=== PATIENT | male | born 1935 | race Caucasian/White ===

== ENCOUNTER 2017-02-14 04:04 | Emergency (ER) | payer MEDICARE ==
[2017-02-14] MEDS ORDERED: 0.9 % SODIUM CHLORIDE 500 ML IV ONE (04:32)
--- NOTE | 2017-02-14 04:37 | ED Physician Documentation ---
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 Pt had bit his tongue and also was incontinent of urine. Pt does not have a seizure history. Pt's speech is slightly slurred on presentation. says that she noticed this and that it has been getting progressively worse for the past few weeks, though it is subtle on presentation. On examination pt correctly gives date and month, but gives year as 1978. Pt has no complaints of weakness or tingling. states that pt has fallen a few times in the past weeks. Pt denies head injury. Pt's does not believe he has injured his head.) - ROS CONST: other (Pt cannot give reliable ROS.) EYES/ENT: none CVS/RESP: none GI/: none MS/SKIN/LYMPH: none NEURO/PSYCH: difficulty with speech - PAST HX Past History: other (DMII, HTN, COPD) Surgeries/Procedures: other (catarac removal; R index finger distal amputation age 5.) Allergies/Adverse Reactions: Allergies Allergy/AdvReac Type Severity Reaction Status Date / Time No Known Drug Allergies Allergy Verified 02/14/17 04:30 Home Medications: Ambulatory Orders Medication Instructions Recorded Aspirin 81 mg PO DAILY u2 04/23/13 - SOCIAL HX Smoking History: quit greater than 1 year Alcohol Use: rarely - FAMILY HX Family History: Yes (Father: CVA) - VITAL SIGNS Vital Signs: Vital Signs Temp Pulse Resp BP Pulse Ox 97.6 F 72 16 183/93 96 02/14/17 04:04 02/14/17 04:04 02/14/17 04:04 02/14/17 04:04 02/14/17 04:04 - REVIEWED ASSESSMENTS Nursing Assessment Reviewed: Yes Vitals Reviewed: Yes Progress - Progress Progress: CT head w/o contrast: Brain atrophy and chronic small vessel ischemic gliosis in cerebral white matter without acute abnormality. Pt appeared to have a seizure in course of ER visit. Staring off to his L side and not answering or responding to questions. This episode was brief lasting about 1 minute, then pt appeared disoriented or post-ictal. Pt given 2 mg ativan IV. Transfer to [facility], to Dr. Walter (of [facility]). - EKG/XRAY/CT EKG: NSR (HR=68; normal CA interval; normal axis.) ED Results Lab/Radiology - Orders Orders: ED Orders Category Date Time Status Place Saline Lock/IV Now Care 02/14/17 04:[address] BRAIN W/O CONTRAST Stat Exams 02/14/17 Ordered CBC/PLATELET/DIFF Routine Lab 02/14/17 Ordered CMP Routine Lab 02/14/17 Ordered PT-INR Routine Lab 02/14/17 Ordered PTT Routine Lab 02/14/17 Ordered NORMAL SALINE @ 500 MLS/HR(500ml BOLUS) Med 02/14/17 04:32 Ordered 0.9 % Sodium Chloride [Normal Saline] 500 ml IV NOW EKG WITH COMPARISON Stat Ther 02/14/17 Ordered General Adult Physical Exam - PHYSICAL EXAM GENERAL APPEARANCE: mild distress EENT: eye inspection normal, ENT inspection normal, other (abrasion L side of violeta tip (pt bit tongue)) NECK: normal inspection, supple RESPIRATORY: no resp distress, chest non-tender, breath sounds normal (distant breath sounds) CVS: reg rate & rhythm, heart sounds normal ABDOMEN: soft, no organomegaly, normal bowel sounds BACK: normal inspection, no CVA tenderness SKIN: warm/dry, normal color EXTREMITIES: non-tender, no evidence of injury NEURO: motor nml, sensation nml, disoriented (Gives correct day and month, but gives year as 1978; Asked to spell "world" says "[id number]") Discharge Clincal Impression: New onset seizure Change in mental state Qualifiers: Altered mental status type: disorientation Qualified Code(s): R41.0 - Disorientation, unspecified Referrals: Branden Walter MD [Primary Care Provider] - Home Medications: Ambulatory Orders Aspirin 81 mg PO DAILY u2 04/23/13 Condition: Stable Disposition: 02 XFER SHT-TRM HOSP Decision to Admit: NO Decision Time: 06:20
[2017-02-14] MEDS ORDERED: ASPIRIN 325 MG TABLET PO ONE (05:15)
[2017-02-14 05:17] LABS: BASOPHILS % 0.3 (0.0-1.5); EOSINOPHILS % 1.6 % (0.0-6.8); MEAN CORPUSCULAR HEMOGLOBIN 30.9 pg (28.0-34.0); MONOCYTES # 0.5 # k/uL (0.0-0.9); MONOCYTES % 5.4 % (0.0-11.0); NEUTROPHILS # 7.2 # k/uL (1.4-7.7)
[2017-02-14 05:36] LABS: eGFR (African) > 60; eGFR (Non-African) > 60
[2017-02-14] MEDS ORDERED: LORazepam 2 MG/ML VIAL ONE (05:49)
[2017-02-14] MEDS ORDERED: LORazepam 2 MG/ML VIAL IVP ONE (05:56)
[2017-02-14] MEDS ORDERED: 0.9 % SODIUM CHLORIDE 1,000 ML IV SCH (06:00)
--- NOTE | 2017-02-14 06:36 | Diagnostic Imaging Report ---
Report Submission Date: Feb 14, 2017 4:57:45 AM CDT Patient ~ Study Name: ERNST VALDOVINOS ~ Date: Feb 14, 2017 4:42:25 AM CDT ~ Modality Type: CT\SR Gender: M ~ Description: CT BRAIN W/O CONTRAST : 37 ~ Institution: [facility] [place] Physician: VICTOR M AUGUSTIN ~ ~ ~ ~ Computed tomography of the head without contrast History: Altered behavior and incontinence Findings: Transverse brain sections are obtained without contrast revealing mild global brain atrophy and moderate chronic small vessel ischemic gliosis in cerebral white matter. Khalil white differentiation is intact. There is no intracranial hemorrhage, mass effect, or fluid collection. Small maxillary sinus mucous retention cysts are present bilaterally. The skull is intact. Impression: Brain atrophy and chronic small vessel ischemic gliosis in cerebral white matter without acute abnormality. ~ Electronically signed on Feb 14, 2017 4:57:45 AM CDT by: Lee ZUNIGA
[2017-02-14 07:23] VITALS: BP 155/82
== END 2017-02-14 07:20 | disposition short-term general hospital (02) ==
LOC: ED 04:04
DX: R41.0 Disorientation, unspecified (principal); R56.9 Unspecified convulsions
CPT/HCPCS: 70450; 80053; 85025; 85610; 85730; 99283; 99284; J2060; J7060; A9270; J7030

== ENCOUNTER 2017-04-19 07:35 | Outpatient (CLI) | payer MEDICARE ==
[2017-04-19 08:32] LABS: eGFR (African) > 60; eGFR (Non-African) > 60
== END 2017-04-19 07:36 ==
LOC: LAB 07:35
PROVIDERS: ATTEND Family Medicine
DX: E11.9 Type 2 diabetes mellitus without complications (principal)
CPT/HCPCS: 36415; 80053; 80061; 82043; 83036

== ENCOUNTER 2017-07-25 12:54 | Outpatient (CLI) | payer MEDICARE | END 2017-07-25 12:55 | LOC: RAD 12:54 | PROVIDERS: ATTEND Family Medicine | DX: R13.11 Dysphagia, oral phase (principal) | CPT/HCPCS: 74230 ==

== ENCOUNTER 2017-09-03 07:36 | Observation (INO) | payer MEDICARE ==
--- NOTE | 2017-09-03 09:16 | History and Physical Report ---
History of Present Illnes - History of Present Illness Reason for Visit: bradycardia History of Present Illness: 82 yo white male who presented to the outpatient department for an endoscopy today. On preprocedure evaluation was noted to be markedly bradycardia with resting heart rate of 36. EKG was done and showed sinus bradycardia of 38. Patient denies any chest pain or pressure. Denies any orthostatic symptoms but his states that he has had some dizziness and staggering when he gets up. He has not fallen. He has had no previous history of bradycardia. Patient has been taking metoprolol 50mg 1/2 tab twice a day for hypertension. Patient denies any recent medication changes. Patient was admitted to monitor heart rate and blood pressure. Will discontinue metoprolol. 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) - Past Family History Mother Family History: (92yo advanced age) Father Family History: CVA, (75yo) Brother 1 Family History: (52yo, unknown cause) Brother 2 Family History: (83yo, unknown cause) - Past Social History Smoke: No Alcohol: None Drugs: None Lives: With Family () Domestic Violence: Negative - Health Maintenance Health Maintenance: Cholesterol, Influenza Vaccine (09-12-17), Pneumococcal Vaccine (pneumococcal 2003, Prevnar 09-12-16) Influenza Vaccine: Current for this Influenza Season Pneumonia Vaccine: Yes Resuscitation Status: Resusciation Status Resuscitation Status No Intubation/Mech Vent - Unable to Obtain History Unable to Obtain: No Review of Systems - Review of Systems Constitutional: negative: Fever, Chills Eyes: negative: pain, vision change ENT: Nose Congestion. negative: Ear Pain, Ear Discharge, Mouth Pain, Mouth Swelling Respiratory: negative: Cough, Dry, Shortness of Breath, Hemoptysis, SOB with Excertion, Pleuritic Pain Cardiovascular: negative: Chest Pain, Palpitations, Orthopnea, Edema, Light Headedness Gastrointestinal: negative: Nausea, Vomiting, Abdominal Pain, Diarrhea, Constipation, Melena, Hematochezia Genitourinary: Retention. negative: Dysuria, Frequency Musculoskeletal: Neck Pain. negative: Shoulder Pain, Back Pain Skin: negative: Rash Neurological: negative: Weakness, Numbness, Incoordination - Medications/Allergies Allergies/Adverse Reactions: Allergies Allergy/AdvReac Type Severity Reaction Status Date / Time No Known Drug Allergies Allergy Verified 02/14/17 04:30 Home Medications: Home Medications Donepezil HCl [Aricept] 5 mg PO HS 09/03/17 Current Inpatient Medications: Current Inpatient Medications Aspirin (Aspirin) 81 mg PO DAILY [facility]ON Donepezil HCl (Aricept) 5 mg PO HS [facility] Levetiracetam (Keppra) 500 mg PO BID [facility] Losartan Potassium (Cozaar) 50 mg PO DAILY [facility] Metformin HCl (Glucophage) 1,000 mg PO 0700 [facility] Sodium Chloride (Normal Saline Flush) 3 ml IV BID [facility] Exam - Exam General: Alert, Oriented to Person, Oriented to Place, Oriented to Time, Cooperative, No acute distress HEENT: Atraumatic, PERRLA, EOMI, Dentition Normal Neck: Stridor, Rigidity, Normal Range of Motion. No: Lymphadenopathy Carotids: WNL Thyroid: WNL Lungs: Clear to auscultation, Normal air movement, Speaks full Sentences. No: Wheezes, Rales, Rhonchi Cardiovascular: Normal S1, Normal S2, No murmurs, Bradycardia (Normal sinus bradycardia on monitor), Other Abdomen: Normal bowel sounds, Soft, No tenderness, No hepatospenomegaly, No masses Integumentary: Normal, [place], Warm, Dry Extremities: No clubbing, No cyanosis. No: No edema (trace) Neurological: Normal gait, Normal speech, Strength Equal Bilat, Normal tone, Sensation intact Psych/Mental Status: Mental status NL, Mood NL, Appropriate Affect, Intact Judgment Assessment/Plan - Assessment/Plan (1) Bradycardia Status: Acute Assessment: No previous problems, will hold metoprolol and monitor heart rate. Patient has been placed on monitor. Will get troponin (2) Diabetes mellitus type 2 Status: Chronic Assessment: check BS, continue with home meds (3) Hypertension Status: Chronic Qualifiers: Hypertension type: essential hypertension Qualified Code(s): I10 - Essential (primary) hypertension Assessment: Will monitor off of the metoprolol (4) New onset seizure Status: Deleted Assessment: continue wiht home med of Keppra, will get blood level VTE Assessment - RISK FACTOR SCORE VTE RISK FACTOR SCORES: AGE OVER 60 YEARS, ANTICIPATED BED CONFINEMENT OR IMMOBILIZATION > 24 HOURS - RISK VTE MODERATE RISK: SCORE OF 2 (RISK PROXIMAL DVT 2-4%) PROPHYAXIS NEEDED
[2017-09-03 09:42] LABS: BASOPHILS % 0.5 (0.0-1.5); EOSINOPHILS % 4.4 % (0.0-6.8); MEAN CORPUSCULAR HEMOGLOBIN 29.4 pg (28.0-34.0); MEAN CORPUSCULAR VOLUME 89.7 fl (80.0-100.0); MONOCYTES % 7.4 % (0.0-11.0); NEUTROPHILS # 4.7 # k/uL (1.4-7.7)
[2017-09-03 09:57] LABS: eGFR (African) > 60; eGFR (Non-African) > 60
[2017-09-03] MEDS: ASPIRIN 81 MG CHEW TAB PO SCH (11:54)
[2017-09-03 13:25] VITALS: BMI 25.9
[2017-09-03] MEDS ORDERED: DONEPEZIL HCL 5 MG TABLET PO ONE (14:04)
[2017-09-03] MEDS: levETIRAcetam 500 MG TABLET PO SCH (20:24)
[2017-09-03] MEDS: SALINE FLUSH 10 ML DISP.SYRIN IV SCH ×2 (20:25→22:51)
[2017-09-03] MEDS ORDERED: DONEPEZIL HCL 5 MG TABLET PO SCH (21:00)
[2017-09-04] MEDS: levETIRAcetam 500 MG TABLET PO SCH (08:23)
[2017-09-04] MEDS: ASPIRIN 81 MG CHEW TAB PO SCH (08:25)
[2017-09-04] MEDS: SALINE FLUSH 10 ML DISP.SYRIN IV SCH (08:26)
[2017-09-04] MEDS ORDERED: LOSARTAN POTASSIUM 50 MG TABLET PO SCH (09:00)
--- NOTE | 2017-09-04 14:09 | Inpatient Progress Note ---
Subjective - Required Recertification Statement I anticipate X number of days because-include discharge plan: 1 - Review of Systems Events since last encounter: Patient continues to be doing well and is asymptomatic. No dizziness or orthostic symptoms. On telemetry patient has been running in the upper 30's to mid 40's most of the night. Has been in the 50-60 since awake. Has been able to maintain BP and mentation well. No chest pain noted. Patient is complaining of some clear nasal drainage General: Denies: Chills, Night Sweats Cardiovascular: Denies: Chest Pain, Palpitations, Orthopnea, Edema Gastrointestinal: Denies: Nausea, Vomiting, Abdominal Pain, Melena, Hematochezia Genitourinary: Denies: Dysuria, Frequency Musculoskeletal: Denies: Neck Pain Neurological: Denies: Weakness, Numbness Objective - Exam Vitals and I&O: Vital Signs Temp 97 F L 09/04/17 14:00 Pulse 44 L 09/04/17 05:42 Resp 57 H 09/04/17 14:00 BP 154/74 09/04/17 14:00 Pulse Ox 95 09/04/17 14:00 Intake & Output 09/03/17 09/04/17 09/04/17 23:59 11:59 23:59 Intake Total 600 240 880 Balance 600 240 880 Intake: Oral 600 240 880 Other: Voiding Method Toilet # Voids 1 1 4 General: Alert, Oriented to Person, Oriented to Place, Oriented to Time, Cooperative, No acute distress HEENT: Atraumatic Neck: Supple, No JVD Lungs: Clear to auscultation (EKG show NSR), Normal air movement, Speaks full Sentences. No: Wheezes, Rales, Rhonchi Cardiovascular: Normal S1, Normal S2, No murmurs, Bradycardia Abdomen: Normal bowel sounds Extremities: No clubbing, No cyanosis Skin: Normal, [place], Warm Psych/Mental Status: Mental status NL - Results Results: Laboratory Results WBC 7.00 K/ul (4.00-12.00) 09/03/17 09:35 RBC 4.70 M/ul (3.90-5.20) 09/03/17 09:35 Hgb 13.8 g/dL (12.0-18.0) 09/03/17 09:35 Hct 42.1 % (37.0-53.0) 09/03/17 09:35 MCV 89.7 fl (80.0-100.0) 09/03/17 09:35 MCH 29.4 pg (28.0-34.0) 09/03/17 09:35 MCHC 32.8 g/dL (30.0-36.0) 09/03/17 09:35 RDW 12.9 % (11.3-14.3) 09/03/17 09:35 Plt Count 204 K/mm3 (130-400) 09/03/17 09:35 Neut % (Auto) 67.4 % (39.0-79.0) 09/03/17 09:35 Lymph % (Auto) 17.7 % (16.0-50.0) 09/03/17 09:35 Frio % (Auto) 7.4 % (0.0-11.0) 09/03/17 09:35 Eos % (Auto) 4.4 % (0.0-6.8) 09/03/17 09:35 Baso % (Auto) 0.5 (0.0-1.5) 09/03/17 09:35 Neut # (Auto) 4.7 # k/uL (1.4-7.7) 09/03/17 09:35 Lymph # (Auto) 1.2 # k/uL (0.6-4.0) 09/03/17 09:35 Frio # (Auto) 0.5 # k/uL (0.0-0.9) 09/03/17 09:35 Eos # (Auto) 0.3 # k/uL (0.0-0.6) 09/03/17 09:35 Baso # (Auto) 0.0 # k/uL (0.0-0.5) 09/03/17 09:35 Reactive Lymphs % 2.6 % (0.0-5.0) 09/03/17 09:35 Reactive Lymphs # 0.2 # k/uL (0.0-0.8) 09/03/17 09:35 Sodium 138 mmol/L (137-145) 09/03/17 09:35 Potassium 4.5 mmol/L (3.5-5.1) 09/03/17 09:35 Chloride 103 mmol/L (98-107) 09/03/17 09:35 Carbon Dioxide 29 mmol/L (22-30) 09/03/17 09:35 BUN 13 mg/dL (9-20) 09/03/17 09:35 Creatinine 0.80 mg/dL (0.66-1.25) 09/03/17 09:35 Est GFR ( Amer) > 60 (60-) 09/03/17 09:35 Est GFR (Non-Af Amer) > 60 (60-) 09/03/17 09:35 Glucose 113 mg/dL (74-106) H 09/03/17 09:35 Calcium 8.6 mg/dL (8.4-10.2) 09/03/17 09:35 Total Bilirubin 0.8 mg/dL (0.2-1.3) 09/03/17 09:35 AST 21 U/L (15-46) 09/03/17 09:35 ALT 24 U/L (13-69) 09/03/17 09:35 Alkaline Phosphatase 46 U/L (38-126) 09/03/17 09:35 Troponin I < 0.03 ng/mL (0.03-0.06) L 09/03/17 09:35 Total Protein 6.6 g/dL (6.3-8.2) 09/03/17 09:35 Albumin 3.5 g/dL (3.5-5.0) 09/03/17 09:35 Levetiracetam 18.4 ug/mL (6.0-46.0) 09/03/17 09:35 Assessment/Plan - Assessment/Plan (1) Bradycardia Status: Acute Current Visit: Yes Assessment: Patient seems to be doing some better since awake. Has been off metoprolol for 24 hours at this time. Will get cardiac consult. (2) Diabetes mellitus type 2 Status: Chronic Current Visit: No Assessment: stable (3) Hypertension Status: Chronic Current Visit: No Qualifiers: Hypertension type: essential hypertension Qualified Code(s): I10 - Essential (primary) hypertension Assessment: stable off metoprolol (4) Seizure Status: Chronic Current Visit: Yes Plan: continue with present anticonvulsant
[2017-09-04 17:13] VITALS: BP 150/70
--- NOTE | 2017-09-08 11:55 | Discharge Summary ---
Discharge Summary - Discharge Sumary History of Present Illness: 82 yo white male who presented to the outpatient department for an endoscopy today. On preprocedure evaluation was noted to be markedly bradycardia with resting heart rate of 36. EKG was done and showed sinus bradycardia of 38. Patient denies any chest pain or pressure. Denies any orthostatic symptoms but his states that he has had some dizziness and staggering when he gets up. He has not fallen. He has had no previous history of bradycardia. Patient has been taking metoprolol 50mg 1/2 tab twice a day for hypertension. Patient denies any recent medication changes. Patient was admitted to monitor heart rate and blood pressure. Will discontinue metoprolol. Home Medications: Ambulatory Orders Medication Instructions Recorded Aspirin 81 mg PO DAILY u2 04/23/13 Donepezil HCl [Aricept] 5 mg PO HS 09/03/17 Allergies/Adverse Reactions: Allergies Allergy/AdvReac Type Severity Reaction Status Date / Time No Known Drug Allergies Allergy Verified 02/14/17 04:30 Discharge Summary: Patient was admitted to the hospital because of his extreme bradycardia. Patient was placed on a captain of guards and appeared to remain in a sinus rhythm. However patient did yung down into the 30s at times. Patient was able to maintain his blood pressure at all times. Patient metoprolol with discontinued. Approximately 24 hours after his metoprolol with decreased patient heart rate increased up into the 50s and 60s. Patient was seen by real property appraiser for evaluation and no further intervention was recommended at this time. Patient will be placed on a Holter monitor once one becomes available for further evaluation. Patient diabetes mellitus remains stable. Patient did not have any hyper or hypoglycemic episodes. Patient seizure disorder remains stable patient did not have any seizure activity during his hospitalization. Hypertension remains stable on his other home medications. At the time of dismissal patient was stable. - Final Diagnosis (1) Bradycardia Problems: Improved (2) Diabetes mellitus type 2 Problems: stable on home meds (3) Hypertension Problems: stable on home meds but off metoprolol (4) New onset seizure Problems: stable
== END 2017-09-04 16:20 | disposition home or self-care (01) ==
LOC: OPSURG 07:36 → SOUTH 08:52
PROVIDERS: ADMIT Family Medicine; ATTEND Family Medicine
DX: R00.1 Bradycardia, unspecified (principal); E11.9 Type 2 diabetes mellitus without complications
CPT/HCPCS: 36415; 80053; 80177; 84484; 85025; 93005; G0378; S1016

== ENCOUNTER 2017-09-05 09:58 | Outpatient (CLI) | payer MEDICARE ==
[2017-09-04 14:05] VITALS: BP 154/74
== END 2017-09-05 10:00 ==
LOC: CARD 09:58 → RT 10:00
PROVIDERS: ATTEND Family Medicine
DX: R00.1 Bradycardia, unspecified (principal)
CPT/HCPCS: 93225

== ENCOUNTER 2017-10-22 14:42 | Outpatient (CLI) | payer MEDICARE ==
[2017-09-04 14:05] VITALS: BP 154/74
[2017-10-22 15:25] LABS: eGFR (African) > 60; eGFR (Non-African) > 60
== END 2017-10-22 14:44 ==
LOC: LAB 14:42
PROVIDERS: ATTEND Family Medicine
DX: E11.9 Type 2 diabetes mellitus without complications (principal); I10 Essential (primary) hypertension
CPT/HCPCS: 36415; 80053; 80061; 83036

== ENCOUNTER 2017-12-10 08:49 | Outpatient (CLI) | payer MEDICARE ==
[2017-09-04 14:05] VITALS: BP 154/74
--- NOTE | 2017-12-10 14:50 | Diagnostic Imaging Report ---
NAUN BELTRAN [facility] [address] [facility].[address] [address] Report Submission Date: Dec 10, 2017 9:55:19 AM MEMBER SERVICES REPRESENTATIVE Patient Study Name: ERNST VALDOVINOS Date: Dec 10, 2017 9:06:19 AM MEMBER SERVICES REPRESENTATIVE Modality Type: US Gender: M Description: DPLX SCN XTRCRAN ART CMP EDOUARD : 39 Institution: [facility] Physician: NAUN BELTRAN Examination: Carotid artery ultrasound History: Syncope. HTN Comparison exams: None available Findings: Right carotid: Common carotid artery peak systolic velocity 77.3 cm/s; end diastolic velocity 13.6 cm/s. Internal carotid artery peak systolic velocity 73.0 cm/s; end diastolic velocity 22.3 cm/s. External carotid artery velocity to 77.8 cm/s. Vertebral artery velocity 33.9 cm/s Vertebral flow antegrade. Normal waveforms. No occlusive plaquing. Left carotid: Common carotid artery peak systolic velocity 70.6 cm/s; end diastolic velocity 15.7 cm/s. Internal carotid artery peak systolic velocity 102.0 cm/s; end diastolic velocity 35.9 cm/s. External carotid artery velocity to 106.1 cm/s. Vertebral artery velocity 42.0 cm/s Vertebral flow antegrade. Normal waveforms. No occlusive plaquing. Right ICA/CCA Ratio: 0.9 Left ICA/CCA Ratio 1.4 Impression: Carotids ratios not elevated. No restriction to hemodynamic flow. Electronically signed on Dec 10, 2017 9:55:19 AM MEMBER SERVICES REPRESENTATIVE by: William ZUNIGA
== END 2017-12-10 08:50 ==
LOC: RAD 08:49
PROVIDERS: ATTEND Family Medicine
DX: G45.9 Transient cerebral ischemic attack, unspecified (principal)
CPT/HCPCS: 93880

== ENCOUNTER 2018-03-11 18:31 | Emergency (ER) | payer MEDICARE ==
--- NOTE | 2018-03-11 18:52 | ED Physician Documentation ---
Altered Mental Status - HISTORIAN Historian: patient - HPI Stated Complaint: mental status changes Chief Complaint: Altered Mental Status Onset: hours (1) Duration: gradual onset Last known Well Date: 03/11/18 Last Known Well Time: 15:00 Last known Well Code/Unknown Code: Unknown Character of Altered Mental Status: disoriented, confused, agitated, trouble concentrating, decreased responsiveness. denies: unresponsive, seizure activity Context: recent alcohol intake, heavy alcohol intake Cognition is Usually: alert but confused Gait is Usually: walks w/o assistance Associated Symptoms: none Further Comments: yes (He was at the local bar and did have "a few drinks" and he was found by his spouse at home "looking at the toliet" She states that he was moving slow and she was sure he was having a stroke. He did not have any specific loss of control of one side. He was speaking clearly but slow to respond. She states he did this January 30 after being at the same bar. She also is concerned because about one month ago he was at a local cafe and he just got up and paid and left without talking to her. In January he came home and went downstairs after the bar and was found "passed out" on the floor) - ROS EYES/ENT: none CVS/RESP: denies: chest pain, shortness of breath, palpitations GI/: denies: abdominal pain, vomiting, nausea NEURO/PSYCH: denies: headache - PAST HX Past History: confusion, diabetes Type 2 Surgeries/Procedures: none Allergies/Adverse Reactions: Allergies Allergy/AdvReac Type Severity Reaction Status Date / Time No Known Drug Allergies Allergy Verified 03/11/18 18:38 Home Medications: Ambulatory Orders Medication Instructions Recorded Aspirin 81 mg PO DAILY u2 04/23/13 - SOCIAL HX Smoking History: non-smoker Alcohol Use: occasionally Drug Use: none - FAMILY HX Family History: none - VITAL SIGNS Vital Signs: Vital Signs Temp Pulse Resp BP Pulse Ox 98.2 F 63 18 130/71 96 03/11/18 20:46 03/11/18 20:46 03/11/18 20:46 03/11/18 20:46 03/11/18 20:46 - REVIEWED ASSESSMENTS Nursing Assessment Reviewed: Yes Vitals Reviewed: Yes Progress - Progress Progress: 1900: up to side of bed for urination tolerated well with assistance. DG 2014: Discussed results with and pt. She states he was not intoxicated and she is sure he has had a stroke. Discussed the lab and diagnostics and he should follow up with PCP for increasing confusion DG ED Results Lab/Radiology - Lab Results Lab Results: Lab Results 03/11/18 03/11/18 03/11/18 19:41 19:08 19:08 WBC 6.10 K/ul K/ul (4.00-12.00) RBC 4.69 M/ul M/ul (3.90-5.20) Hgb 14.4 g/dL g/dL (12.0-18.0) Hct 41.4 % % (37.0-53.0) MCV 88.3 fl fl (80.0-100.0) MCH 30.7 pg pg (28.0-34.0) MCHC 34.8 g/dL g/dL (30.0-36.0) RDW 12.7 % % (11.3-14.3) Plt Count 260 K/mm3 K/mm3 (130-400) Neut % (Auto) 69.8 % % (39.0-79.0) Lymph % (Auto) 17.2 % % (16.0-50.0) Ray % (Auto) 7.4 % % (0.0-11.0) Eos % (Auto) 3.0 % % (0.0-6.8) Baso % (Auto) 0.6 (0.0-1.5) Neut # (Auto) 4.2 # k/uL # k/uL (1.4-7.7) Lymph # (Auto) 1.0 # k/uL # k/uL (0.6-4.0) Ray # (Auto) 0.4 # k/uL # k/uL (0.0-0.9) Eos # (Auto) 0.2 # k/uL # k/uL (0.0-0.6) Baso # (Auto) 0.0 # k/uL # k/uL (0.0-0.5) Reactive Lymphs % 2.1 % % (0.0-5.0) Reactive Lymphs # 0.1 # k/uL # k/uL (0.0-0.8) PT 10.2 Seconds Seconds (9.4-11.6) INR 0.97 (0.9-1.2) APTT 23.5 Seconds L Seconds (24.5-32.8) Sodium Potassium Chloride Carbon Dioxide BUN Creatinine Estimated Creat Clear Est GFR ( Amer) Est GFR (Non-Af Amer) Glucose Calcium Total Bilirubin AST ALT Alkaline Phosphatase Creatine Kinase CK-MB (CK-2) 2.6 ng/mL ng/mL (0.0-5.6) Troponin I Total Protein Albumin Ethyl Alcohol 03/11/18 03/11/18 19:07 19:07 WBC RBC Hgb Hct MCV MCH MCHC RDW Plt Count Neut % (Auto) Lymph % (Auto) Ray % (Auto) Eos % (Auto) Baso % (Auto) Neut # (Auto) Lymph # (Auto) Ray # (Auto) Eos # (Auto) Baso # (Auto) Reactive Lymphs % Reactive Lymphs # PT INR APTT Sodium 142 mmol/L mmol/L (136-145) Potassium 4.0 mmol/L mmol/L (3.5-5.1) Chloride 104 mmol/L mmol/L (98-107) Carbon Dioxide 23 mmol/L mmol/L (22-30) BUN 11 mg/dL mg/dL (9-20) Creatinine 1.00 mg/dL mg/dL (0.66-1.25) Estimated Creat Clear 90 Est GFR ( Amer) > 60 (60 - ) Est GFR (Non-Af Amer) > 60 (60 - ) Glucose 240 mg/dL H mg/dL (74-106) Calcium 8.5 mg/dL mg/dL (8.4-10.2) Total Bilirubin 0.7 mg/dL mg/dL (0.2-1.3) AST 27 U/L U/L (15-46) ALT 36 U/L U/L (13-69) Alkaline Phosphatase 69 U/L U/L (38-126) Creatine Kinase 104 U/L U/L (55-170) CK-MB (CK-2) Troponin I < 0.03 ng/mL L ng/mL (0.03-0.06) Total Protein 7.1 g/dL g/dL (6.3-8.2) Albumin 4.1 g/dL g/dL (3.5-5.0) Ethyl Alcohol 123.2 mg/dL H mg/dL (0.0-10.0) - Radiology Radiology Impressions: CT brain noncontrast Date of study: March 11, 2018. CLINICAL HISTORY: change in PERICO (Hx) / ITS.REASON change in PERICO TECHNIQUE: 5 mm contiguous axial images of the brain, noncontrast. FINDINGS: Comparison is made with February 14, 2017. Atrophy and chronic periventricular microvascular ischemic changes are again noted. Bilateral basal ganglia calcifications are noted. There is no evidence of intracranial mass effect, hemorrhage, or acute hydrocephalus. The lateral ventricles are symmetrical and the 4th ventricle is midline without shift. No acute brain parenchymal changes or extra-axial fluid collections are identified. The posterior fossa contents are within normal limits. The calvarium is intact. Bilateral maxillary sinus mucous retention cysts or polyps are noted. The remaining visualized sinuses and mastoid air cells are clear. IMPRESSION: No acute intracranial process. Atrophy and chronic periventricular microvascular ischemic changes. Electronically signed on Mar 11, 2018 7:34:43 PM CDT by: Yony Mullins - Orders Orders: ED Orders Category Date Time Status IV Started NOW Care 03/11/18 18:[address] BRAIN W/O CONTRAST Stat Exams 03/11/18 Ordered ALCOHOL MEDICAL USE ONLY Stat Lab 03/11/18 19:07 Completed CBC/PLATELET/DIFF Routine Lab 03/11/18 19:08 Completed CKMB Stat Lab 03/11/18 19:41 Completed CMP Routine Lab 03/11/18 19:07 Completed CREATINE KINASE Routine Lab 03/11/18 19:07 Completed PT-INR Routine Lab 03/11/18 19:08 Completed PTT Routine Lab 03/11/18 19:08 Completed TROPONIN I (cTnI) Stat Lab 03/11/18 19:07 Completed 0.9 % Sodium Chloride [Normal Saline] 1,000 ml Med 03/11/18 19:39 Discontinued IV .STK-MED 0.9 % Sodium Chloride [Normal Saline] 1,000 ml Med 03/11/18 18:58 Discontinued IV Q1H Folic Acid [Folvite] Med 03/11/18 19:39 Discontinued 5 mg .ROUTE .STK-MED ONE Mvi, Adult No.1 with Vit K [M.v.i. Adult] Med 03/11/18 19:39 Discontinued 10 ml IV .STK-MED ONE Thiamine HCl Med 03/11/18 19:39 Discontinued 200 mg .ROUTE .STK-MED ONE Thiamine HCl 100 mg Med 03/11/18 20:00 Discontinued Mvi, Adult No.1 with Vit K [M.v.i. Adult] 10 ml Folic Acid [Folvite] 5 mg 0.9 % Sodium Chloride [Normal Saline] 1,000 ml IV Q8 EKG WITH COMPARISON Routine Ther 03/11/18 Completed EKG WITH COMPARISON Stat Ther 03/11/18 Ordered Altered Mental Status Physical - Physical Exam General Appearance: no acute distress, alert Neuro/Psych: none alert, no evidence of acute CVA, abnml respond to command, eyes open, slow to respond, other (confusion vs hard of hearing . On second requests questions or demads are appropriate ) nml as tested Cerebellar Exam: nml as tested. No: nml gait (he was too off balance to finish - he did stand and walk to bathroom ) Peripheral Exam: motor nml, sensation nml HEENT: MIGUEL, ENT inspection nml Neck: normal inspection Respiratory: no resp distress, chest non-tender, breath sounds normal CVS: reg rate & rhythm, heart sounds normal, equal pulses, no murmur Abdomen: non-tender, no organomegaly, nml bowel sounds, no distention Skin: warm/dry, normal color Extremities: non-tender, normal range of motion, no evidence of injury, no edema Discharge Clincal Impression: Alcohol intoxication Qualifiers: Complication of substance-induced condition: with delirium Qualified Code(s): F10.921 - Alcohol use, unspecified with intoxication delirium Referrals: Branden Walter MD [Primary Care Provider] - 2 Days Additional Instructions: 1. DO NOT DRINK ALCOHOL 2. follow up with PCP about previous incidence of confusion 3. Return to ER for concerning symptoms -increased confusion, weakness, mental status changes or speech issues Condition: Stable Disposition: 01 HOME, SELF-CARE Decision to Admit: NO Date of Decison to Admit: 03/11/18 Decision Time: 20:26
[2018-03-11] MEDS ORDERED: 0.9 % SODIUM CHLORIDE 1,000 ML IV ONE ×2 (18:58→19:39)
[2018-03-11 19:15] LABS: BASOPHILS % 0.6 (0.0-1.5); MEAN CORPUSCULAR HEMOGLOBIN 30.7 pg (28.0-34.0); MEAN CORPUSCULAR VOLUME 88.3 fl (80.0-100.0); MONOCYTES % 7.4 % (0.0-11.0); NEUTROPHILS # 4.2 # k/uL (1.4-7.7)
[2018-03-11 19:27] LABS: eGFR (Non-African) > 60
[2018-03-11] MEDS ORDERED: MULTIVIT INFUSN,ADULT 1,VIT K 10 ML VIAL IV ONE (19:39)
[2018-03-11] MEDS ORDERED: THIAMINE HCL 100 MG/ML 2ML VIAL ONE (19:39)
[2018-03-11] MEDS ORDERED: FOLIC ACID 5 MG/1 ML ONE (19:39)
[2018-03-11] MEDS ORDERED: THIAMINE HCL 100 MG, MULTIVIT INFUSN,ADULT 1,VIT K 10 ML, FOLIC ACID 5 MG in 0.9 % SODI... IV SCH (20:00)
[2018-03-11 20:48] VITALS: BP 130/71
--- NOTE | 2018-03-12 06:26 | Diagnostic Imaging Report ---
HUGO TIDWELL [facility] [address] [facility] [address] [place], [place]. [address] Report Submission Date: Mar 11, 2018 7:34:43 PM CDT Patient Study Name: ERNST VALDOVINOS Date: Mar 11, 2018 7:05:17 PM CDT Modality Type: CT\SR Gender: M Description: CT BRAIN W/O CONTRAST : 39 Institution: [facility] Physician: HUGO TIDWELL CT brain noncontrast Date of study: March 11, 2018. CLINICAL HISTORY: change in PERICO (Hx) / ITS.REASON change in PERICO TECHNIQUE: 5 mm contiguous axial images of the brain, noncontrast. FINDINGS: Comparison is made with February 14, 2017. Atrophy and chronic periventricular microvascular ischemic changes are again noted. Bilateral basal ganglia calcifications are noted. There is no evidence of intracranial mass effect, hemorrhage, or acute hydrocephalus. The lateral ventricles are symmetrical and the 4th ventricle is midline without shift. No acute brain parenchymal changes or extra-axial fluid collections are identified. The posterior fossa contents are within normal limits. The calvarium is intact. Bilateral maxillary sinus mucous retention cysts or polyps are noted. The remaining visualized sinuses and mastoid air cells are clear. IMPRESSION: No acute intracranial process. Atrophy and chronic periventricular microvascular ischemic changes. Electronically signed on Mar 11, 2018 7:34:43 PM CDT by: Yony ZUNIGA
== END 2018-03-11 20:46 | disposition home or self-care (01) ==
LOC: ED 18:31
DX: F10.921 Alcohol use, unspecified with intoxication delirium (principal); E11.9 Type 2 diabetes mellitus without complications; R41.82 Altered mental status, unspecified
CPT/HCPCS: 80053; 82550; 82553; 84484; 85025; 85610; 85730; 93005; G0480; J3411; J3490; J7030; 70450; 80320; 96365; 99282; 99283

== ENCOUNTER 2018-05-01 09:52 | Outpatient (CLI) | payer MEDICARE | END 2018-05-01 09:53 | LOC: LAB 09:52 | PROVIDERS: ATTEND Family Medicine | DX: E11.9 Type 2 diabetes mellitus without complications (principal) | CPT/HCPCS: 36415; 83036 ==

== ENCOUNTER 2018-05-16 12:19 | Emergency (ER) | payer MEDICARE ==
[2018-05-16 12:32] VITALS: BP 100/69
--- NOTE | 2018-05-16 12:44 | ED Physician Documentation ---
General Adult - HISTORIAN Historian: patient - HPI Stated Complaint: L Knee pain Chief Complaint: General Adult Onset: hours Timing: still present Severity: moderate Further Comments: yes (Pt is an 82 yo male who injured his L knee this am. Pt was sitting on a bucket that tipped backwards and pt fell. Pt has had pain in his L knee.) - ROS CONST: no problems EYES/ENT: none CVS/RESP: none GI/: none MS/SKIN/LYMPH: other (L knee pain) - PAST HX Past History: other (HTN, DM, Dementia (mild)) Allergies/Adverse Reactions: Allergies Allergy/AdvReac Type Severity Reaction Status Date / Time No Known Drug Allergies Allergy Verified 05/16/18 12:32 Home Medications: Ambulatory Orders Medication Instructions Recorded Aspirin [Aspir-Low] 81 mg PO DAILY #0 u2 04/23/13 Azelastine HCl [Astelin] 2 spray INH DAILY 05/16/18 Levetiracetam [Keppra] 500 mg PO BID 05/16/18 - SOCIAL HX Smoking History: non-smoker - FAMILY HX Family History: No - VITAL SIGNS Vital Signs: Vital Signs Temp Pulse Resp BP Pulse Ox 97.3 F L 70 18 100/69 97 05/16/18 12:25 05/16/18 12:25 05/16/18 12:25 05/16/18 12:25 05/16/18 12:25 - REVIEWED ASSESSMENTS Nursing Assessment Reviewed: Yes Vitals Reviewed: Yes Progress - Progress Progress: Ibuprofen 200 mg. Take 2 tablets every 8 hrs with food. CHEYANNE wrap knee. Use walker to rest knee as much as possible. Follow up with Dr. Walter on Sunday as planned. General Adult Physical Exam - PHYSICAL EXAM GENERAL APPEARANCE: mild distress NECK: normal inspection, supple RESPIRATORY: no resp distress, chest non-tender, breath sounds normal CVS: reg rate & rhythm, heart sounds normal BACK: normal inspection, no CVA tenderness SKIN: warm/dry, normal color EXTREMITIES: other (L knee tenderness; no ligamentous instability; possible mild swelling) NEURO: oriented X3, motor nml, sensation nml Discharge Clincal Impression: L knee pain, sprain Referrals: Branden Walter MD [Primary Care Provider] - Condition: Good Disposition: 01 HOME, SELF-CARE Decision to Admit: NO Decision Time: 13:55
--- NOTE | 2018-05-16 19:00 | Diagnostic Imaging Report ---
VICTOR M AUGUSTIN [facility] [address] [facility] [address] [address] Report Submission Date: May 16, 2018 1:26:34 PM CDT Patient Study Name: ERNST VALDOVINOS Date: May 16, 2018 12:55:42 PM CDT Modality Type: DX Gender: M Description: LOWER EXTREMITY : 39 Institution: [facility] Physician: VICTOR M AUGUSTIN Left knee History: Pain. Fell off the bucket. AP, lateral and sunrise views of the left knee were obtained which demonstrate mild narrowing of patellofemoral compartment joint space. No joint effusion is seen. There is no evidence for acute fracture or dislocation. Impression: Mild narrowing of patellofemoral compartment joint space. Otherwise, no osseous abnormality. Electronically signed on May 16, 2018 1:26:34 PM CDT by: Roselia ZUNIGA
== END 2018-05-16 14:00 | disposition home or self-care (01) ==
LOC: ED 12:19
DX: M25.562 Pain in left knee (principal); S83.92XA Sprain of unspecified site of left knee, initial encounter; W19.XXXA Unspecified fall, initial encounter; Y92.9 Unspecified place or not applicable; Y93.9 Activity, unspecified; Y99.9 Unspecified external cause status
CPT/HCPCS: 73562; 99283

== ENCOUNTER 2018-10-14 07:52 | Outpatient (CLI) | payer MEDICARE ==
[2018-10-14 09:10] LABS: eGFR (Non-African) > 60
== END 2018-10-14 07:53 ==
LOC: LAB 07:52
PROVIDERS: ATTEND Family Medicine
DX: E11.9 Type 2 diabetes mellitus without complications (principal); I10 Essential (primary) hypertension; G40.909 Epilepsy, unspecified, not intractable, without status epilepticus
CPT/HCPCS: 36415; 80053; 80061; 80177; 82043; 83036

== ENCOUNTER 2019-02-17 09:56 | Emergency (ER) | payer MEDICARE ==
[2019-02-17 10:18] VITALS: BP 148/95
--- NOTE | 2019-02-17 10:39 | ED Physician Documentation ---
Fall - HISTORIAN Historian: patient - HPI Stated Complaint: fall/R rib pain Chief Complaint: Fall (Right sided rib pain) Additional Information: Pt is an 83-year-old male that presents to the ER with some right rib discomfort status post fall. Patient states 2 nights ago he lost his balance taking off his pants (foot got tangled) and he fell over- hitting the right chest area on a chair. He has been using aspercreme which helps. He is concerned due to increased pain when he goes from sitting to standing. He denies any shortness of breath. He states "I just wanted to come in and check to see if anything is broken". Very pleasant- no acute distress. Onset: days ago (2 nights ago) Where: home Context: tripped r: mild Associated Symptoms:: denies: no loss of consciousness, dazed Location of Pain/Injury: other (right ribs) Injury to Right Extremity: none Injury to Left Extremity: none - ROS CONST: no problems NEURO: denies: dizziness MS/SKIN/LYMPH: denies: weakness EYES/ENT: none CVS/RESP: none. denies: shortness of breath GI/: denies: problems urinating, nausea, vomiting - PAST HX Past History: diabetes Type 2, other (HTN, ) Immunizations: UTD Allergies/Adverse Reactions: Allergies Allergy/AdvReac Type Severity Reaction Status Date / Time No Known Drug Allergies Allergy Verified 02/17/19 10:18 Home Medications: Ambulatory Orders Medication Instructions Recorded Levetiracetam [Keppra] 500 mg PO BID 05/16/18 - SOCIAL HX Smoking History: non-smoker Alcohol Use: occasionally Drug Use: none - FAMILY HX Family History: no significant history - VITAL SIGNS Vital Signs: Vital Signs Temp Pulse Resp BP Pulse Ox 96.9 F L 70 16 148/95 96 02/17/19 09:56 02/17/19 09:56 02/17/19 09:56 02/17/19 09:56 02/17/19 09:56 ED Results Lab/Radiology - Radiology Radiology Impressions: History: Evaluate lungs RIGHT CHEST WALL/RIB PAIN POST FALL TODAY Comparison exam: None provided. Findings: Single view of the chest demonstrates a normal cardiac and mediastinal silhouette. Tortuous aorta. Lung christopher without focal infiltrate. No blunting of the costophrenic margins. Osseous structures are appropriate for age. Impression: No acute pulmonary process. Electronically signed on Feb 17, 2019 10:48:54 AM CDT by: William Goldsmith History: RIGHT CHEST WALL/RIB PAIN POST FALL TODAY Findings: 4 views of the right ribs demonstrates cortical irregularity involving the anterior margin of the 8th rib. No other fracture or dislocation. Underlying parenchymal without abnormality. Impression: Possible small fracture involving the anterior margin of the 8th rib. Correlate with point discomfort. Electronically signed on Feb 17, 2019 10:54:12 AM CDT by: William Goldsmith - Orders Orders: ED Orders Category Date Time Status CHEST 1VIEW [RAD] Stat Exams 02/17/19 Ordered RIBS UNILAT 2 VIEWS [RAD] Stat Exams 02/17/19 Ordered Fall Physical Exam - Physical Exam General Appearance: no acute distress, alert Head: no obvious injury Neck: non-tender, painless ROM Eye: MIGUEL ENT: nml external inspection, airway nml Resp/CVS: chest non-tender, breath sounds nml, rib tenderness (right sided) Abdomen: soft, normal bowel sounds Neuro: oriented x3, CN's nml as tested, sensation nml, motor nml, mood/affect nml, vice chairman nml Skin: color nml, no rash Back: normal inspection Extremities: atraumatic, nml ROM Joint: nml ROM, Nml gait/weight bearing - [place] Coma Score Eyes Open: Spontaneous Speech: Oriented Motor: Obeys Commands Discharge Clincal Impression: Rib fracture Referrals: Branden Walter MD [Primary Care Provider] - 2 Days Additional Instructions: Make sure to take big deep breaths to prevent respiratory illness May use a pillow to splint the right ribs when moving from sitting to standing or when you need to cough May alternate Tylenol and Ibuprofen as needed for pain Follow up with PCP in 1-2 weeks for a check up Condition: Good Disposition: 01 HOME, SELF-CARE Decision to Admit: NO Decision Time: 11:04
--- NOTE | 2019-02-17 12:22 | Diagnostic Imaging Report ---
JOSE CARLOS [facility] [address] [facility] [address] [address] Report Submission Date: Feb 17, 2019 10:48:54 AM CDT Patient Study Name: ERNST VALDOVINOS Date: Feb 17, 2019 10:22:00 AM CDT Modality Type: DX Gender: M Description: CHEST 1VIEW : 39 Institution: [facility] Physician: JOSE CARLOS Examination: Portable chest History: Evaluate lungs RIGHT CHEST WALL/RIB PAIN POST FALL TODAY Comparison exam: None provided. Findings: Single view of the chest demonstrates a normal cardiac and mediastinal silhouette. Tortuous aorta. Lung christopher without focal infiltrate. No blunting of the costophrenic margins. Osseous structures are appropriate for age. Impression: No acute pulmonary process. Electronically signed on Feb 17, 2019 10:48:54 AM CDT by: William ZUNIGA
--- NOTE | 2019-02-17 12:23 | Diagnostic Imaging Report ---
JOSE CARLOS [facility] [address] [facility] [address] Report Submission Date: Feb 17, 2019 10:54:12 AM CDT Patient Study Name: ERNST VALDOVINOS Date: Feb 17, 2019 10:22:00 AM CDT Modality Type: DX Gender: M Description: RIBS UNILAT 2 VIEWS : 39 Institution: [facility] Physician: JOSE CARLOS Examination: Plain film right ribs History: RIGHT CHEST WALL/RIB PAIN POST FALL TODAY Findings: 4 views of the right ribs demonstrates cortical irregularity involving the anterior margin of the 8th rib. No other fracture or dislocation. Underlying parenchymal without abnormality. Impression: Possible small fracture involving the anterior margin of the 8th rib. Correlate with point discomfort. Electronically signed on Feb 17, 2019 10:54:12 AM CDT by: William ZUNIGA
== END 2019-02-17 11:02 | disposition home or self-care (01) ==
LOC: ED 09:56
DX: S22.31XA Fracture of one rib, right side, initial encounter for closed fracture (principal); W01.190A Fall on same level from slipping, tripping and stumbling with subsequent striking against furniture, initial encounter; Y93.89 Activity, other specified; Y92.009 Unspecified place in unspecified non-institutional (private) residence as the place of occurrence of the external cause
CPT/HCPCS: 71045; 71100; 99283; 99284

== ENCOUNTER 2019-03-03 07:26 | Outpatient (CLI) | payer MEDICARE ==
[2019-03-03 08:36] LABS: eGFR (Non-African) > 60
== END 2019-03-03 07:28 ==
LOC: LAB 07:26
PROVIDERS: ATTEND Family Medicine
DX: E11.9 Type 2 diabetes mellitus without complications (principal); I10 Essential (primary) hypertension
CPT/HCPCS: 36415; 80053; 80061; 83036

== ENCOUNTER 2019-03-07 08:12 | Emergency (ER) | payer MEDICARE ==
[2019-03-07] MEDS: IPRATROPIUM/ALBUTEROL SULFATE 3 ML AMPUL.NEB NEB STA (08:35)
[2019-03-07 09:09] LABS: MEAN CORPUSCULAR HEMOGLOBIN 30.8 pg (28.0-34.0)
[2019-03-07 09:10] LABS: BASOPHILS % 1 % (0-2); EOSINOPHILS % 0 % (0-7); MONOCYTES % 2 % (0-11); SEGMENTED NEUTROPHILS % 78 % (39-79)
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
[2019-03-07 09:55] LABS: eGFR (Non-African) > 60
[2019-03-07] MEDS: IPRATROPIUM/ALBUTEROL SULFATE 3 ML AMPUL.NEB NEB ONE (09:56)
[2019-03-07] MEDS: 0.9 % SODIUM CHLORIDE 1,000 ML IV ONE (09:57)
[2019-03-07] MEDS ORDERED: SODIUM CHLORIDE 0.9% 3 ML INH.NEB IH ONE (10:09)
[2019-03-07] MEDS: RACEPINEPHRINE HCL 2.25% 0.5mL VIAL.NEB NEB ONE (10:15)
[2019-03-07] MEDS: SODIUM CHLORIDE 0.9% 3 ML INH.NEB IH ONE (10:15)
[2019-03-07] MEDS: ALBUTEROL SULFATE 2.5 MG/3 ML AMPUL.NEB NEB ONE (12:11)
[2019-03-07] MEDS: PIPERACILLIN SODIUM/TAZOBACTAM 3.375 GM in 0.9 % SODIUM CHLORIDE(MINIBAG+ 100 ML IV ONE (12:14)
[2019-03-07 12:42] VITALS: BP 144/79
--- NOTE | 2019-03-07 21:44 | Diagnostic Imaging Report ---
BREANNA GOLDSTEIN (ENTERTAINER OR VARIETY ARTIST) - ER [facility] [address] [facility].[address] [address] Report Submission Date: Mar 07, 2019 11:39:24 AM CDT Patient Study Name: ERNST VALDOVINOS Date: Mar 07, 2019 10:53:21 AM CDT Modality Type: CT\SR Gender: M Description: CT PE CHEST : 37 Institution: [facility] Physician: BREANNA GOLDSTEIN (PRITESH) - ER CT chest PE protocol History: Sudden onset of shortness of breath and cough Technique: Helically acquired images were obtained through the chest following IV contrast using a pulmonary embolism protocol. 3D MIPS were obtained. Findings: No filling defects are identified within the pulmonary arteries to suggest pulmonary embolism. There is no mediastinal or hilar lymphadenopathy. The thoracic aorta is normal in caliber. There is no pericardial or pleural effusion. The lungs are clear. There is a small hiatal hernia. Multilevel anterior marginal osteophytes the thoracic spine are present consistent with diffuse idiopathic skeletal hyperostosis. Impression: No evidence for pulmonary embolism. No acute intrathoracic abnormality. Small hiatal hernia. Electronically signed on Mar 07, 2019 11:39:24 AM CDT by: Roselia ZUNIGA
--- NOTE | 2019-03-07 21:52 | Diagnostic Imaging Report ---
BREANNA GOLDSTEIN (FISHERIES MANAGEMENT BIOLOGIST) - ER [facility] [address] [address] Report Submission Date: Mar 07, 2019 9:03:31 AM CDT Patient Study Name: ERNST VALDOVINOS Date: Mar 07, 2019 8:44:00 AM CDT Modality Type: DX Gender: M Description: CHEST 2VIEW : 37 Institution: [facility] Physician: BREANNA GOLDSTEIN (FISHERIES MANAGEMENT BIOLOGIST) - ER Examination: PA and lateral chest. History: Evaluate lung christopher. Comparison exam: None provided. Findings: PA and lateral views of the chest demonstrates a normal cardiac and mediastinal silhouette. Tortuous aorta with vascular calcifications. No focal infiltrate. No blunting of the costophrenic margins. Lateral pleural wall thickening. Osseous structures are appropriate for age. Impression: No acute appearing pulmonary process. Electronically signed on Mar 07, 2019 9:03:31 AM CDT by: William ZUNIGA
== END 2019-03-07 12:40 | disposition short-term general hospital (02) ==
LOC: ED 08:12
DX: A41.9 Sepsis, unspecified organism (principal); I48.91 Unspecified atrial fibrillation; R09.02 Hypoxemia; R06.2 Wheezing; Z99.81 Dependence on supplemental oxygen
CPT/HCPCS: 36415; 71046; 71275; 80053; 83605; 83880; 84484; 85025; 87040; 87400; 93005; 94640; 96365; 99285; J2543; J7030; Q9967; S1016

== ENCOUNTER 2019-07-10 16:06 | Inpatient (IN) | payer MEDICARE ==
[2019-07-10] MEDS ORDERED: IPRATROPIUM/ALBUTEROL SULFATE 3 ML AMPUL.NEB NEB ONE (16:31)
[2019-07-10 16:52] LABS: BASOPHILS % 0.5 % (0.0-1.5)
--- NOTE | 2019-07-10 16:52 | Diagnostic Imaging Report ---
VICTOR M AUGUSTIN [facility] [address] [facility] [address] [place], [place]. [address] Report Submission Date: Jul 10, 2019 4:43:32 PM CDT Patient Study Name: ERNST VALDOVINOS Date: Jul 10, 2019 4:12:10 PM CDT Modality Type: DX Gender: M Description: CHEST 2VIEW : 37 Institution: [facility] Physician: VICTOR M AUGUSTIN Examination: PA and lateral chest. History: Evaluate lung christopher. Comparison exam: 07 March 2019 Findings: PA and lateral views of the chest demonstrates a normal cardiac and mediastinal silhouette. Tortuous aorta. No focal infiltrate. No blunting of the costophrenic margins. Osseous structures are appropriate for age. Impression: No acute appearing pulmonary process. Electronically signed on Jul 10, 2019 4:43:32 PM CDT by: William ZUNIGA
[2019-07-10 17:10] LABS: eGFR (Non-African) > 60
[2019-07-10] MEDS ORDERED: levETIRAcetam 500 MG TABLET PO ONE (18:05)
[2019-07-10] MEDS ORDERED: APIXABAN 5 MG TABLET PO ONE (18:05)
[2019-07-10 19:20] LABS: APPEARANCE,URINE CLEAR (CLEAR); COLOR,URINE AMBER (YELLOW); OCCULT BLOOD,URINE 2+ (NEGATIVE); UROBILINOGEN URINE 0.2 Eu (0.2-1.0)
[2019-07-10] MEDS ORDERED: methylPREDNISolone SOD SUCC 125 MG/2 ML VIAL ONE (19:33)
[2019-07-10] MEDS ORDERED: LEVALBUTEROL NEB 1.25 MG/3 ML VIAL.NEB IH PRN (21:13)
[2019-07-11] MEDS ORDERED: AZITHROMYCIN 500 MG VIAL IV ONE (00:07)
[2019-07-11] MEDS ORDERED: cefTRIAXone SODIUM 1 GM INJ ONE (00:08)
[2019-07-11] MEDS: cefTRIAXone SODIUM 1 GM in 0.9 % SODIUM CHLORIDE 50 ML IV SCH ×2 (00:17→10:38)
[2019-07-11] MEDS: AZITHROMYCIN 500 MG in 0.9 % SODIUM CHLORIDE 250 ML IV SCH ×2 (00:27→21:49)
[2019-07-11 00:58] VITALS: BMI 52.6
[2019-07-11] MEDS: IPRATROPIUM/ALBUTEROL SULFATE 3 ML AMPUL.NEB NEB SCH ×6 (03:03→21:48)
[2019-07-11] MEDS ORDERED: methylPREDNISolone SOD SUCC 125 MG/2 ML VIAL ONE (04:24)
[2019-07-11] MEDS: methylPREDNISolone SOD SUCC 40 MG/ML VIAL IVP SCH ×3 (04:30→20:04)
--- NOTE | 2019-07-11 07:01 | Inpatient Progress Note ---
Subjective - Required Recertification Statement I anticipate X number of days because-include discharge plan: 2 - Review of Systems Events since last encounter: Patient continues to have harsh cough- occasional productive- low grade fevers and tachycardia. He gets short of breath with talking and exertion. He is pleasant and has been cooperative with treatment. General: Fatigue. Denies: Chills HEENT: Sinus Congestion Pulmonary: Dyspnea, Cough Cardiovascular: Denies: Chest Pain Gastrointestinal: Denies: Nausea, Vomiting, Abdominal Pain Genitourinary: Denies: Dysuria Musculoskeletal: Denies: Back Pain Neurological: Weakness Objective - Exam Vitals and I&O: Vital Signs Temp 98.0 F 07/11/19 06:00 Pulse 88 07/11/19 06:00 Resp 20 07/11/19 06:00 BP 112/70 07/11/19 06:00 Pulse Ox 98 07/11/19 06:00 Intake & Output 07/10/19 07/10/19 07/11/19 11:59 23:59 11:59 Weight 176 kg Other: Voiding Method Urinal # Bowel Movements 0 General: Alert, Oriented to Person, Oriented to Place, Cooperative, Moderate distress, Obese HEENT: PERRLA, Nose Mucous membr. moist/[place] Neck: +2 carotid pulse wo bruit Lungs: Wheezes, Rhonchi, Accessory Muscle Use Cardiovascular: Tachycardia Abdomen: Normal bowel sounds, Soft Extremities: No edema, Normal pulses, No tenderness/swelling Skin: Warm, Dry, Pale Neurological: Strength Equal Bilat, Generalized Weakness Psych/Mental Status: Mental status NL, Mood NL - Results Results: Laboratory Results WBC 15.20 K/ul (4.00-12.00) H 07/10/19 16:37 RBC 4.95 M/ul (3.90-5.20) 07/10/19 16:37 Hgb 15.6 g/dL (12.0-18.0) 07/10/19 16:37 Hct 46.6 % (37.0-53.0) 07/10/19 16:37 MCV 94.0 fl (80.0-100.0) 07/10/19 16:37 MCH 31.6 pg (28.0-34.0) 07/10/19 16:37 MCHC 33.6 g/dL (30.0-36.0) 07/10/19 16:37 RDW 13.2 % (11.3-14.3) 07/10/19 16:37 Plt Count 192 K/mm3 (130-400) 07/10/19 16:37 Neut % (Auto) 85.5 % (39.0-79.0) H 07/10/19 16:37 Lymph % (Auto) 5.5 % (16.0-50.0) L 07/10/19 16:37 [place] % (Auto) 6.5 % (0.0-11.0) 07/10/19 16:37 Eos % (Auto) 2.0 % (0.0-6.8) 07/10/19 16:37 Baso % (Auto) 0.5 % (0.0-1.5) 07/10/19 16:37 Neut # (Auto) 13.0 # k/uL (1.4-7.7) H 07/10/19 16:37 Lymph # (Auto) 0.8 # k/uL (0.6-4.0) 07/10/19 16:37 [place] # (Auto) 1.0 # k/uL (0.0-0.9) H 07/10/19 16:37 Eos # (Auto) 0.3 # k/uL (0.0-0.6) 07/10/19 16:37 Baso # (Auto) 0.1 # k/uL (0.0-0.5) 07/10/19 16:37 PT 10.7 Seconds (8.8-11.9) 07/10/19 16:37 INR 1.03 (0.80-1.10) 07/10/19 16:37 APTT 25.1 Seconds (24.5-32.8) 07/10/19 16:37 D-Dimer 1582 ng/mL (6.0-682) H 07/10/19 16:37 Sodium 141 mmol/L (137-145) 07/10/19 16:37 Potassium 4.4 mmol/L (3.5-5.1) 07/10/19 16:37 Chloride 99 mmol/L (98-107) 07/10/19 16:37 Carbon Dioxide 28 mmol/L (22-30) 07/10/19 16:37 Anion Gap 18.4 07/10/19 16:37 BUN 13 mg/dL (9-20) 07/10/19 16:37 Creatinine 0.97 mg/dL (0.66-1.25) 07/10/19 16:37 Est GFR ( Amer) > 60 (60-) 07/10/19 16:37 Est GFR (Non-Af Amer) > 60 (60-) 07/10/19 16:37 Glucose 172 mg/dL (74-106) H 07/10/19 16:37 Calcium 9.5 mg/dL (8.4-10.2) 07/10/19 16:37 Total Bilirubin 1.3 mg/dL (0.2-1.3) 07/10/19 16:37 AST 42 U/L (15-46) 07/10/19 16:37 ALT 14 U/L (13-69) 07/10/19 16:37 Alkaline Phosphatase 72 U/L (38-126) 07/10/19 16:37 Creatine Kinase 141 U/L (55-170) 07/10/19 16:37 CK-MB (CK-2) 2.1 ng/mL (0.0-5.6) 07/10/19 16:37 Troponin I < 0.012 ng/mL (0.012-0.034) L 07/10/19 16:37 NT-Pro-B Natriuret Pep 1056.9 pg/mL (11.1-450.0) H 07/10/19 16:37 Total Protein 8.3 g/dL (6.3-8.2) H 07/10/19 16:37 Albumin 4.7 g/dL (3.5-5.0) 07/10/19 16:37 Urine Color [place] (YELLOW) 07/10/19 16:36 Urine Appearance Clear (CLEAR) 07/10/19 16:36 Urine pH 5.0 (5.0 - 8.0) 07/10/19 16:36 Ur Specific [place] >=1.030 (1.010-1.030) H 07/10/19 16:36 Urine Protein 2+ mg/dL (NEGATIVE) H 07/10/19 16:36 Urine Ketones 1+ mg/dL (NEGATIVE) H 07/10/19 16:36 Urine Occult Blood 2+ (NEGATIVE) H 07/10/19 16:36 Urine Nitrite Negative (NEGATIVE) 07/10/19 16:36 Urine Bilirubin 1+ (NEGATIVE) H 07/10/19 16:36 Urine Urobilinogen 0.2 Eu (0.2-1.0) 07/10/19 16:36 Ur Leukocyte Esterase Negative (NEGATIVE) 07/10/19 16:36 Urine Glucose Trace mg/dL (NEGATIVE) 07/10/19 16:36 Assessment/Plan - Assessment/Plan (1) Atrial fibrillation Status: Acute Current Visit: Yes Assessment: Patient having tachycarida > 110 Plan: Patient is on Eliquis (2) COPD exacerbation Status: Acute Current Visit: Yes Assessment: Lungs are coarse with wheezes throughout; requiring oxygen Plan: Will continue with HFN treatments; supplemental Oxygen; IV steroids (3) Pneumonia Status: Acute Current Visit: Yes Qualifiers: Pneumonia type: due to unspecified organism Assessment: Lungs are coarse with wheezes; cough; still pending blood cultures Plan: Will continue with IV antibiotics; Will continue with HFN treatments; supplemental Oxygen; IV steroids (4) Diabetes mellitus type 2 Status: Chronic Current Visit: No Assessment: Blood sugars are elevated > 150 Plan: Will keep patient on sliding scale insulin (5) Hypertension Status: Chronic Current Visit: No Qualifiers: Hypertension type: essential hypertension Qualified Code(s): I10 - Essential (primary) hypertension Assessment: Blood pressures are stable Plan: Will continue with blood pressure medication (6) Weakness Status: Acute Current Visit: Yes Assessment: Patient increasingly weak due to Pneumonia/COPD Plan: Will order PT/OT (7) Seizure Status: Chronic Current Visit: No Assessment: No evidence of seizures Plan: Will continue with [place]
[2019-07-11] MEDS: INSULIN REGULAR, HUMAN 100 UNIT/ML 10ML VIAL SQ SCH ×4 (07:40→20:05)
[2019-07-11 07:54] LABS: BASOPHILS % 0.3 % (0.0-1.5); NEUTROPHILS # 9.8 # k/uL (1.4-7.7)
[2019-07-11 08:30] LABS: eGFR (Non-African) > 60
[2019-07-11] MEDS ORDERED: levETIRAcetam 500 MG TABLET PO ONE (09:03)
[2019-07-11] MEDS ORDERED: DONEPEZIL HCL 5 MG TABLET PO ONE (09:13)
[2019-07-11] MEDS: APIXABAN 5 MG TABLET PO SCH ×2 (09:27→20:00)
[2019-07-11] MEDS: CYANOCOBALAMIN (VITAMIN B12) 1,000 MCG TABLET PO SCH (09:28)
[2019-07-11] MEDS: LOSARTAN POTASSIUM 50 MG TABLET PO SCH (09:28)
[2019-07-11] MEDS: BUDESONIDE 0.5MG/2ML AMPUL.NEB NEB SCH ×2 (09:28→21:49)
[2019-07-11] MEDS: SODIUM CHLORIDE 0.9 % (FLUSH) 10 ML DISP.SYRIN IV SCH ×2 (09:31→20:12)
[2019-07-11] MEDS: DONEPEZIL HCL 5 MG TABLET PO SCH ×2 (09:34→10:31)
[2019-07-11] MEDS: levETIRAcetam 500 MG TABLET PO SCH ×3 (09:34→20:00)
--- NOTE | 2019-07-11 14:29 | History and Physical Report ---
History of Present Illnes - History of Present Illness Reason for Visit: COPD EXACERBATION/PNEUMONIA History of Present Illness: Patient is an 84-year-old male who presented to the ER with c/o increasing shortness of breath, tachypnea, and tachycardia. His pulse ox in the ER was at 76% on room air. Symptoms started yesterday. He was diagnosed with COPD exac. However, once patient was admitted he spiked a fever; blood cultures collected and IV antibiotics x 2. Will treat patient as a Pneumonia. Patient did have an elevated D-dimer in the ER and CT was completed; negative. 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 negative: Throat Pain Respiratory: Cough, Shortness of Breath, SOB with Excertion, Wheezing Cardiovascular: Light Headedness. negative: Chest Pain Gastrointestinal: negative: Nausea, Abdominal Pain Genitourinary: negative: Dysuria Musculoskeletal: negative: Back Pain Skin: negative: Rash Neurological: Weakness, Incoordination - Medications/Allergies Allergies/Adverse Reactions: Allergies Allergy/AdvReac Type Severity Reaction Status Date / Time No Known Drug Allergies Allergy Verified 03/07/19 08:51 Current Inpatient Medications: Current Inpatient Medications Albuterol/Ipratropium (Duoneb) 3 ml NEB Q4 RAMON Stop: 08/10/19 00:59 Last Admin: 07/11/19 13:46 Dose: 3 ml Apixaban (Eliquis) 5 mg PO BID RAMON Stop: 08/10/19 08:59 Last Admin: 07/11/19 09:27 Dose: 5 mg Atorvastatin Calcium (Lipitor) 10 mg PO HS RAMON Stop: 08/10/19 20:59 Budesonide (Pulmicort) 0.5 mg NEB BID [facility] Stop: 08/10/19 08:59 Last Admin: 07/11/19 09:28 Dose: 0.5 mg Cyanocobalamin (Vitamin B-12) 1,000 mcg PO DAILY [facility] Stop: 08/10/19 08:59 Last Admin: 07/11/19 09:28 Dose: 1,000 mcg Donepezil HCl (Aricept) 10 mg PO DAILY [facility] Stop: 08/10/19 09:59 Last Admin: 07/11/19 10:31 Dose: Not Given Azithromycin 500 mg/ Sodium (Chloride) 250 mls @ 250 mls/hr IV Q24H [facility] Stop: 07/14/19 23:59 Last Admin: 07/11/19 00:27 Dose: 250 mls/hr Ceftriaxone Sodium 1 gm/ (Sodium Chloride) 50 mls @ 100 mls/hr IV DAILY [facility] Stop: 08/09/19 21:59 Last Admin: 07/11/19 10:38 Dose: 100 mls/hr Insulin Human Regular (Novolin R) 0 unit SQ CHEMQID [facility]; Protocol Stop: 08/10/19 07:29 Last Admin: 07/11/19 12:08 Dose: 4 units Levalbuterol HCl (Xopenex Neb) 1.25 mg IH Q4H PRN PRN Reason: SHORTNESS OF BREATH Stop: 08/09/19 21:12 Levetiracetam (Keppra) 500 mg PO BID [facility] Stop: 08/10/19 09:59 Last Admin: 07/11/19 10:29 Dose: Not Given Losartan Potassium (Cozaar) 50 mg PO DAILY [facility] Stop: 08/10/19 08:59 Last Admin: 07/11/19 09:28 Dose: 50 mg Methylprednisolone Sodium Succinate (Solu-Medrol) 80 mg IVP Q8 [facility] Stop: 08/10/19 04:59 Last Admin: 07/11/19 13:51 Dose: 80 mg Miscellaneous (Chem Sticks) 1 each MC CHEMQID [facility] Stop: 08/10/19 07:29 Last Admin: 07/11/19 12:01 Dose: 1 each Sodium Chloride (Normal Saline Flush) 3 ml IV BID [facility] Stop: 08/10/19 08:59 Last Admin: 07/11/19 09:31 Dose: 3 ml Exam - Exam Vital Signs: Vital Signs (72 hours) 07/10/19 07/10/19 07/10/19 21:10 21:28 21:51 Temperature 100.3 F H 100.3 F H Pulse Rate Pulse Rate [ 93 H 96 H 97 H Right] Respiratory 20 24 24 Rate Blood Pressure 123/70 147/96 147/96 [Right Arm] O2 Sat by Pulse 98 98 98 Oximetry 07/10/19 07/11/19 07/11/19 22:00 01:10 02:00 Temperature 97.6 F Pulse Rate 94 H 94 H Pulse Rate [ 95 H Right] Respiratory 18 Rate Blood Pressure 131/95 [Right Arm] O2 Sat by Pulse 97 96 Oximetry 07/11/19 07/11/19 07/11/19 05:45 06:00 08:50 Temperature 98.0 F 99 F Pulse Rate 90 Pulse Rate [ 88 99 H Right] Respiratory 20 22 Rate Blood Pressure 112/70 117/60 [Right Arm] O2 Sat by Pulse 98 99 Oximetry 07/11/19 07/11/19 10:00 13:51 Temperature 101.1 F H Pulse Rate 101 H Pulse Rate [ 96 H Right] Respiratory 22 20 Rate Blood Pressure 103/58 [Right Arm] O2 Sat by Pulse 94 94 Oximetry General: Alert, Oriented to Person, Oriented to Place, Cooperative, Moderate distress, Obese HEENT: Mouth Mucous membr. moist/[place], Nose Mucous membr. moist/[place] Neck: Normal Range of Motion Carotids: No bruit Lungs: Wheezes, Rhonchi, Accessory Muscle Use Cardiovascular: Tachycardia Peripheral Edema: None Peripheral Pulses: 2+ Abdomen: Normal bowel sounds, Soft Integumentary: Warm, Dry, Pale Extremities: No edema, Normal pulses, No tenderness/swelling Neurological: Strength Equal Bilat, Generalized Weakness Psych/Mental Status: Mental status NL, Mood NL, Appropriate Affect - Laboratory Results Laboratory Results: Laboratory Results 07/10/19 07/10/19 07/10/19 16:36 16:37 16:37 WBC 15.20 H RBC 4.95 Hgb 15.6 Hct 46.6 MCV 94.0 MCH 31.6 MCHC 33.6 RDW 13.2 Plt Count 192 Neut % (Auto) 85.5 H Lymph % (Auto) 5.5 L Kleberg % (Auto) 6.5 Eos % (Auto) 2.0 Baso % (Auto) 0.5 Neut # (Auto) 13.0 H Lymph # (Auto) 0.8 Kleberg # (Auto) 1.0 H Eos # (Auto) 0.3 Baso # (Auto) 0.1 PT INR APTT D-Dimer Sodium 141 Potassium 4.4 Chloride 99 Carbon Dioxide 28 Anion Gap 18.4 BUN 13 Creatinine 0.97 Estimated Creat Clear Est GFR ( Amer) > 60 Est GFR (Non-Af Amer) > 60 Glucose 172 H Calcium 9.5 Total Bilirubin 1.3 AST 42 ALT 14 Alkaline Phosphatase 72 Creatine Kinase 141 CK-MB (CK-2) Troponin I NT-Pro-B Natriuret Pep Total Protein 8.3 H Albumin 4.7 Urine Color Chacha Urine Appearance Clear Urine pH 5.0 Ur Specific [place] >=1.030 H Urine Protein 2+ H Urine Ketones 1+ H Urine Occult Blood 2+ H Urine Nitrite Negative Urine Bilirubin 1+ H Urine Urobilinogen 0.2 Ur Leukocyte Esterase Negative Urine Glucose Trace 07/10/19 07/10/19 07/11/19 16:37 16:37 05:00 WBC RBC Hgb Hct MCV MCH MCHC RDW Plt Count Neut % (Auto) Lymph % (Auto) [place] % (Auto) Eos % (Auto) Baso % (Auto) Neut # (Auto) Lymph # (Auto) [place] # (Auto) Eos # (Auto) Baso # (Auto) PT 10.7 INR 1.03 APTT 25.1 D-Dimer 1582 H Sodium Potassium Chloride Carbon Dioxide Anion Gap BUN Creatinine Estimated Creat Clear Est GFR ( Amer) Est GFR (Non-Af Amer) Glucose Calcium Total Bilirubin AST ALT Alkaline Phosphatase Creatine Kinase CK-MB (CK-2) 2.1 2.8 Troponin I < 0.012 L < 0.012 L NT-Pro-B Natriuret Pep 1056.9 H Total Protein Albumin Urine Color Urine Appearance Urine pH Ur Specific [place] Urine Protein Urine Ketones Urine Occult Blood Urine Nitrite Urine Bilirubin Urine Urobilinogen Ur Leukocyte Esterase Urine Glucose 07/11/19 07/11/19 05:00 05:00 WBC 10.70 RBC 4.92 Hgb 15.5 Hct 46.0 MCV 94.0 MCH 31.4 MCHC 33.6 RDW 13.2 Plt Count 181 Neut % (Auto) 91.5 H Lymph % (Auto) 5.9 L [place] % (Auto) 1.4 Eos % (Auto) 0.9 Baso % (Auto) 0.3 Neut # (Auto) 9.8 H Lymph # (Auto) 0.6 Kle[place] # (Auto) 0.2 Eos # (Auto) 0.1 Baso # (Auto) 0.0 PT INR APTT D-Dimer Sodium 144 Potassium 4.6 Chloride 101 Carbon Dioxide 24 Anion Gap 23.6 BUN 14 Creatinine 0.87 Estimated Creat Clear 162 Est GFR ( Amer) > 60 Est GFR (Non-Af Amer) > 60 Glucose 237 H Calcium 9.6 Total Bilirubin 0.8 AST 30 ALT 10 L Alkaline Phosphatase 77 Creatine Kinase 151 CK-MB (CK-2) Troponin I NT-Pro-B Natriuret Pep Total Protein 8.1 Albumin 4.6 Urine Color Urine Appearance Urine pH Ur Specific [place] Urine Protein Urine Ketones Urine Occult Blood Urine Nitrite Urine Bilirubin Urine Urobilinogen Ur Leukocyte Esterase Urine Glucose Assessment/Plan - Assessment/Plan (1) Pneumonia Status: Acute Current Visit: Yes Qualifiers: Pneumonia type: due to unspecified organism Plan: Will implement IV Rocephin & Zithromax; HFN every 4 hours; IV steroids 80mg every 8 hours; incentive spirometer; repeat labs and xray (2) COPD exacerbation Status: Acute Current Visit: Yes Plan: Will give IV steroids 80mg every 8 hours; HFN tx's every 4 hours; incentive spirometry; Pulmicort BID (3) Diabetes mellitus type 2 Status: Chronic Current Visit: No Plan: Will place patient on SSI due to increase risk of hyperglycemia with IV steroids (4) Hypertension Status: Chronic Current Visit: No Qualifiers: Hypertension type: essential hypertension Qualified Code(s): I10 - Essential (primary) hypertension Plan: Will monitor blood pressures every 4 hours and continue with BP medications (5) Seizure Status: Chronic Current Visit: No Plan: Will continue on Keppra VTE Assessment - RISK FACTOR SCORE VTE RISK FACTOR SCORES: AGE OVER 60 YEARS, OBESITY, ACUTE RESPIRATORY FAILURE/SEVERE COPD - RISK VTE HIGH RISK: SCORE OF 3-4 (RISK PROXIMAL DVT 4-8%) PROPHYLAXIS NEEDED (Patient is on Eliquis, will ambulate, use of incentive spirometer)
[2019-07-11] MEDS ORDERED: ACETAMINOPHEN 325 MG TABLET PO PRN (15:23)
--- NOTE | 2019-07-11 16:50 | Diagnostic Imaging Report ---
VICTOR M AUGUSTIN [facility] [id number] [facility] [address] [place], [place]. [address] Report Submission Date: Jul 10, 2019 6:09:08 PM CDT Patient Study Name: ERNST VALDOVINOS Date: Jul 10, 2019 5:29:21 PM CDT Modality Type: CT\SR Gender: M Description: CHEST W/ PE PROTOCOL : 39 Institution: [facility] Physician: VICTOR M AUGUSTIN Exam: CT chest with contrast. History: Shortness of breath. Axial images through the thorax after IV infusion of 92 cc Omnipaque 350 is submitted along with sagittal and coronal reformatted images. The examination is compared to study dated March 07, 2019. Lung christopher are well aerated without yeny consolidation or effusion. A small hiatal hernia is identified. No yeny abnormality in the upper abdomen is identified. The thoracic aorta is of normal caliber. The mainstem pulmonary artery is of normal caliber. No significant mediastinal or axillary adenopathy is noted. No intrinsic filling defects in the pulmonary arteries are identified. Degenerate changes in the thoracic spine are noted. Impression: No yeny consolidation or effusion. Small hiatal hernia. No intrinsic filling defects in the pulmonary arteries. The Electronically signed on Jul 10, 2019 6:09:08 PM CDT by: Juan José ZUNIGA
[2019-07-11] MEDS: ATORVASTATIN CALCIUM 10 MG TABLET PO SCH (20:01)
[2019-07-12] MEDS: IPRATROPIUM/ALBUTEROL SULFATE 3 ML AMPUL.NEB NEB SCH ×5 (01:11→21:08)
[2019-07-12] MEDS: methylPREDNISolone SOD SUCC 40 MG/ML VIAL IVP SCH ×3 (05:10→20:36)
--- NOTE | 2019-07-12 07:22 | Inpatient Progress Note ---
Subjective - Required Recertification Statement I anticipate X number of days because-include discharge plan: 2 - Review of Systems Events since last encounter: Patient continues to have harsh cough- occasional productive- low grade fevers and tachycardia. He gets short of breath with talking and exertion. He is pleasant and has been cooperative with treatment. General: Fatigue. Denies: Chills HEENT: Denies: Dysphasia Pulmonary: Dyspnea, Cough Cardiovascular: Denies: Chest Pain Gastrointestinal: Denies: Nausea, Vomiting, Diarrhea Genitourinary: Denies: Dysuria Musculoskeletal: Denies: Back Pain Neurological: Weakness Objective - Exam Vitals and I&O: Vital Signs Temp 97.9 F 07/12/19 06:00 Pulse 97 H 07/12/19 06:00 Resp 20 07/12/19 06:00 BP 125/85 07/12/19 06:44 Pulse Ox 93 07/12/19 06:00 Intake & Output 07/11/19 07/11/19 07/12/19 11:59 23:59 11:59 Intake Total 363 830 12 Output Total 200 Balance 363 630 12 Intake: IV 3 250 12 Left Forearm 3 250 12 Oral 360 580 Output: Urine 200 Other: Voiding Method Urinal Urinal Urinal # Bowel Movements 0 1 General: Alert, Oriented to Person, Oriented to Place, Cooperative, Moderate distress HEENT: Atraumatic, PERRLA, Mouth Mucous membr. moist/[place], Nose Mucous membr. moist/[place] Neck: Supple, +2 carotid pulse wo bruit Lungs: Wheezes, Rhonchi Cardiovascular: Normal S1, Normal S2, Tachycardia Abdomen: Normal bowel sounds, Soft Extremities: No edema, Normal pulses, No tenderness/swelling Skin: Warm, Dry, Pale Neurological: Strength Equal Bilat, Generalized Weakness Psych/Mental Status: Mental status NL, Mood NL, Appropriate Affect - Results Results: Laboratory Results WBC 10.70 K/ul (4.00-12.00) 07/11/19 05:00 RBC 4.92 M/ul (3.90-5.20) 07/11/19 05:00 Hgb 15.5 g/dL (12.0-18.0) 07/11/19 05:00 Hct 46.0 % (37.0-53.0) 07/11/19 05:00 MCV 94.0 fl (80.0-100.0) 07/11/19 05:00 MCH 31.4 pg (28.0-34.0) 07/11/19 05:00 MCHC 33.6 g/dL (30.0-36.0) 07/11/19 05:00 RDW 13.2 % (11.3-14.3) 07/11/19 05:00 Plt Count 181 K/mm3 (130-400) 07/11/19 05:00 Neut % (Auto) 91.5 % (39.0-79.0) H 07/11/19 05:00 Lymph % (Auto) 5.9 % (16.0-50.0) L 07/11/19 05:00 [place] % (Auto) 1.4 % (0.0-11.0) 07/11/19 05:00 Eos % (Auto) 0.9 % (0.0-6.8) 07/11/19 05:00 Baso % (Auto) 0.3 % (0.0-1.5) 07/11/19 05:00 Neut # (Auto) 9.8 # k/uL (1.4-7.7) H 07/11/19 05:00 Lymph # (Auto) 0.6 # k/uL (0.6-4.0) 07/11/19 05:00 Forrest # (Auto) 0.2 # k/uL (0.0-0.9) 07/11/19 05:00 Eos # (Auto) 0.1 # k/uL (0.0-0.6) 07/11/19 05:00 Baso # (Auto) 0.0 # k/uL (0.0-0.5) 07/11/19 05:00 PT 10.7 Seconds (8.8-11.9) 07/10/19 16:37 INR 1.03 (0.80-1.10) 07/10/19 16:37 APTT 25.1 Seconds (24.5-32.8) 07/10/19 16:37 D-Dimer 1582 ng/mL (6.0-682) H 07/10/19 16:37 Sodium 144 mmol/L (137-145) 07/11/19 05:00 Potassium 4.6 mmol/L (3.5-5.1) 07/11/19 05:00 Chloride 101 mmol/L (98-107) 07/11/19 05:00 Carbon Dioxide 24 mmol/L (22-30) 07/11/19 05:00 Anion Gap 23.6 07/11/19 05:00 BUN 14 mg/dL (9-20) 07/11/19 05:00 Creatinine 0.87 mg/dL (0.66-1.25) 07/11/19 05:00 Estimated Creat Clear 162 07/11/19 05:00 Est GFR ( Amer) > 60 (60-) 07/11/19 05:00 Est GFR (Non-Af Amer) > 60 (60-) 07/11/19 05:00 Glucose 237 mg/dL (74-106) H 07/11/19 05:00 Calcium 9.6 mg/dL (8.4-10.2) 07/11/19 05:00 Total Bilirubin 0.8 mg/dL (0.2-1.3) 07/11/19 05:00 AST 30 U/L (15-46) 07/11/19 05:00 ALT 10 U/L (13-69) L 07/11/19 05:00 Alkaline Phosphatase 77 U/L (38-126) 07/11/19 05:00 Creatine Kinase 151 U/L (55-170) 07/11/19 05:00 CK-MB (CK-2) 2.8 ng/mL (0.0-5.6) 07/11/19 05:00 Troponin I < 0.012 ng/mL (0.012-0.034) L 07/11/19 05:00 NT-Pro-B Natriuret Pep 1056.9 pg/mL (11.1-450.0) H 07/10/19 16:37 Total Protein 8.1 g/dL (6.3-8.2) 07/11/19 05:00 Albumin 4.6 g/dL (3.5-5.0) 07/11/19 05:00 Urine Color Chacha (YELLOW) 07/10/19 16:36 Urine Appearance Clear (CLEAR) 07/10/19 16:36 Urine pH 5.0 (5.0 - 8.0) 07/10/19 16:36 Ur Specific [place] >=1.030 (1.010-1.030) H 07/10/19 16:36 Urine Protein 2+ mg/dL (NEGATIVE) H 07/10/19 16:36 Urine Ketones 1+ mg/dL (NEGATIVE) H 07/10/19 16:36 Urine Occult Blood 2+ (NEGATIVE) H 07/10/19 16:36 Urine Nitrite Negative (NEGATIVE) 07/10/19 16:36 Urine Bilirubin 1+ (NEGATIVE) H 07/10/19 16:36 Urine Urobilinogen 0.2 Eu (0.2-1.0) 07/10/19 16:36 Ur Leukocyte Esterase Negative (NEGATIVE) 07/10/19 16:36 Urine Glucose Trace mg/dL (NEGATIVE) 07/10/19 16:36 Assessment/Plan - Assessment/Plan (1) Atrial fibrillation Status: Acute Current Visit: Yes Assessment: Patient having tachycarida > 110 but improving Plan: Patient is on Eliquis (2) COPD exacerbation Status: Acute Current Visit: Yes Assessment: Lungs are coarse with wheezes throughout; requiring oxygen Plan: Will continue with HFN treatments; supplemental Oxygen; IV steroids (3) Pneumonia Status: Acute Current Visit: Yes Qualifiers: Pneumonia type: due to unspecified organism Assessment: Lungs are coarse with wheezes; cough; still pending blood cultures Plan: Will continue with IV antibiotics; Will continue with HFN treatments; supplemental Oxygen; IV steroids (4) Weakness Status: Acute Current Visit: Yes Assessment: Patient increasingly weak due to Pneumonia/COPD Plan: Continue with PT/OT (5) Diabetes mellitus type 2 Status: Chronic Current Visit: No Assessment: Blood sugars are elevated > 150 Plan: Will keep patient on sliding scale insulin (6) Hypertension Status: Chronic Current Visit: No Qualifiers: Hypertension type: essential hypertension Qualified Code(s): I10 - Essential (primary) hypertension Assessment: Blood pressures are stable Plan: Will continue with blood pressure medication (7) Seizure Status: Chronic Current Visit: No Assessment: No evidence of seizure like symptoms Plan: Will continue on Keppra
[2019-07-12] MEDS: INSULIN REGULAR, HUMAN 100 UNIT/ML 10ML VIAL SQ SCH ×4 (07:35→21:18)
[2019-07-12] MEDS: DONEPEZIL HCL 5 MG TABLET PO SCH (09:04)
[2019-07-12] MEDS: LOSARTAN POTASSIUM 50 MG TABLET PO SCH (09:04)
[2019-07-12] MEDS: levETIRAcetam 500 MG TABLET PO SCH ×2 (09:04→20:34)
[2019-07-12] MEDS: APIXABAN 5 MG TABLET PO SCH ×2 (09:04→20:34)
[2019-07-12] MEDS: CYANOCOBALAMIN (VITAMIN B12) 1,000 MCG TABLET PO SCH (09:05)
[2019-07-12] MEDS: cefTRIAXone SODIUM 1 GM in 0.9 % SODIUM CHLORIDE 50 ML IV SCH (09:05)
[2019-07-12] MEDS: SODIUM CHLORIDE 0.9 % (FLUSH) 10 ML DISP.SYRIN IV SCH ×2 (09:05→20:34)
[2019-07-12] MEDS: BUDESONIDE 0.5MG/2ML AMPUL.NEB NEB SCH ×2 (09:16→21:02)
[2019-07-12] MEDS ORDERED: IPRATROPIUM/ALBUTEROL SULFATE 3 ML AMPUL.NEB NEB ONE (20:22)
[2019-07-12] MEDS ORDERED: methylPREDNISolone SOD SUCC 40 MG/ML VIAL ONE (20:22)
[2019-07-12] MEDS: ATORVASTATIN CALCIUM 10 MG TABLET PO SCH (20:34)
[2019-07-12] MEDS: AZITHROMYCIN 500 MG in 0.9 % SODIUM CHLORIDE 250 ML IV SCH (21:52)
[2019-07-13] MEDS ORDERED: methylPREDNISolone SOD SUCC 40 MG/ML VIAL ONE (04:14)
[2019-07-13] MEDS ORDERED: IPRATROPIUM/ALBUTEROL SULFATE 3 ML AMPUL.NEB NEB ONE (04:14)
[2019-07-13] MEDS: methylPREDNISolone SOD SUCC 40 MG/ML VIAL IVP SCH (05:39)
[2019-07-13] MEDS: IPRATROPIUM/ALBUTEROL SULFATE 3 ML AMPUL.NEB NEB SCH (05:40)
[2019-07-13 06:03] LABS: BASOPHILS % 0.3 % (0.0-1.5)
[2019-07-13 06:04] LABS: NEUTROPHILS # 15.5 # k/uL (1.4-7.7)
[2019-07-13 06:07] LABS: eGFR (Non-African) > 60
--- NOTE | 2019-07-13 06:34 | Diagnostic Imaging Report ---
JOSE CARLOS [facility] [address] [facility] [address] [address] Report Submission Date: Jul 13, 2019 6:22:40 AM CDT Patient Study Name: ERNST VALDOVINOS Date: Jul 13, 2019 5:49:49 AM CDT Modality Type: DX Gender: M Description: CHEST 2VIEW : 39 Institution: [facility] Physician: JOSE CARLOS 2 views of the chest History: Pneumonia Comparison: July 10, 2019 Mild cardiomegaly. Aorta is ectatic and tortuous. Left retrocardiac opacities seen. Rounded radiodense 8 mm foci at both scapulae appear artifactual probably related to clothing. Mild pulmonary vascular congestion. No pleural effusion or pneumothorax. Multilevel thoracic spine degenerative changes Impression: Mild cardiomegaly and pulmonary vascular congestion. Left retrocardiac patchy infiltrate/atelectasis. Electronically signed on Jul 13, 2019 6:22:40 AM CDT by: Rhoda ZUNIGA
--- NOTE | 2019-07-13 07:10 | Discharge Summary ---
Discharge Summary - Discharge [facility] Admission Date: 07/10/19 Discharge Date: 07/13/19 Discharge To: Home History of Present Illness: Patient is an 84-year-old male who presented to the ER with c/o increasing shortness of breath, tachypnea, and tachycardia. His pulse ox in the ER was at 76% on room air. Symptoms started yesterday. He was diagnosed with COPD exac. However, once patient was admitted he spiked a fever; blood cultures collected and IV antibiotics x 2. Will treat patient as a Pneumonia. Patient did have an elevated D-dimer in the ER and CT was completed; negative. Condition at Discharge: Stable Home Medications: Ambulatory Orders Medication Instructions Recorded Levetiracetam [Keppra] 500 mg PO BID 05/16/18 Azithromycin [Zithromax] 250 mg PO DAILY #4 tablet 07/13/19 Cefuroxime Axetil [Ceftin] 250 mg PO BID #20 tablet 07/13/19 Prednisone 20 mg PO DAILY #10 tablet 07/13/19 Consultations this Visit: None Procedures this Visit: None Allergies/Adverse Reactions: Allergies Allergy/AdvReac Type Severity Reaction Status Date / Time No Known Drug Allergies Allergy Verified 03/07/19 08:51 Patient Problems: Current Active Problems Problem Status Onset Atrial fibrillation Acute COPD exacerbation Acute Pneumonia Acute Weakness Acute Discharge Summary: Patient is feeling much better this morning; he is requesting to go home today; patient will be discharged home today; he will berry picker scripts from pharmacy and continue to take his cefuroxime and zithromax with prednisone. He will continue on home medications. he will call PCP in the morning and schedule follow up appointment. - Final Diagnosis (1) Atrial fibrillation Problems: Stable- continue Eliquis Right or Left: Right (2) COPD exacerbation Problems: Continue with home inhalers; Prednisone 20 mg daily for 5 days Right or Left: Right (3) Pneumonia Problems: Stable; will continue on cefuroxime and zithromax Right or Left: Right (4) Weakness Problems: Improved; patient has been up independently Right or Left: Right (5) Diabetes mellitus type 2 Problems: Continue home medications; follow a diabetic diet Right or Left: Right (6) Hypertension Problems: Stable; continue on home medications Right or Left: Right (7) Seizure Problems: Stable; continue on home meds Right or Left: Right
[2019-07-13] MEDS ORDERED: metFORMIN HCl 500 MG TABLET PO ONE (07:29)
[2019-07-13] MEDS ORDERED: predniSONE 20 MG TABLET PO ONE (07:29)
[2019-07-13] MEDS ORDERED: metFORMIN HCl 500 MG TABLET PO SCH (07:30)
[2019-07-13] MEDS: INSULIN REGULAR, HUMAN 100 UNIT/ML 10ML VIAL SQ SCH (07:34)
[2019-07-13] MEDS: LOSARTAN POTASSIUM 50 MG TABLET PO SCH (08:23)
[2019-07-13] MEDS: levETIRAcetam 500 MG TABLET PO SCH (08:23)
[2019-07-13] MEDS: DONEPEZIL HCL 5 MG TABLET PO SCH (08:23)
[2019-07-13] MEDS: CYANOCOBALAMIN (VITAMIN B12) 1,000 MCG TABLET PO SCH (08:23)
[2019-07-13] MEDS: APIXABAN 5 MG TABLET PO SCH (08:23)
[2019-07-13] MEDS: SODIUM CHLORIDE 0.9 % (FLUSH) 10 ML DISP.SYRIN IV SCH (08:24)
[2019-07-13] MEDS: BUDESONIDE 0.5MG/2ML AMPUL.NEB NEB SCH (08:27)
[2019-07-13] MEDS: cefTRIAXone SODIUM 1 GM in 0.9 % SODIUM CHLORIDE 50 ML IV SCH (08:30)
[2019-07-13 08:35] VITALS: BP 131/84
[2019-07-13] MEDS ORDERED: predniSONE 20 MG TABLET PO SCH (09:00)
== END 2019-07-13 10:07 | disposition home or self-care (01) | DRG 190 ==
LOC: ED 16:06 → SOUTH 20:05
PROVIDERS: ADMIT Nurse Practitioner Family; ATTEND Nurse Practitioner Family
DX: J44.1 Chronic obstructive pulmonary disease with (acute) exacerbation (principal); J18.9 Pneumonia, unspecified organism; Z68.43 Body mass index [BMI] 50.0-59.9, adult; J44.0 Chronic obstructive pulmonary disease with (acute) lower respiratory infection; R56.9 Unspecified convulsions; E11.65 Type 2 diabetes mellitus with hyperglycemia; I10 Essential (primary) hypertension; I48.91 Unspecified atrial fibrillation; E78.5 Hyperlipidemia, unspecified; E66.9 Obesity, unspecified; Z86.73 Personal history of transient ischemic attack (TIA), and cerebral infarction without residual deficits; Z79.01 Long term (current) use of anticoagulants; Z98.49 Cataract extraction status, unspecified eye; Z87.891 Personal history of nicotine dependence; Z79.899 Other long term (current) drug therapy
CPT/HCPCS: 71046; 71275; 80053; 81002; 82550; 82553; 83880; 84484; 85025; 85379; 85610; 85730; 93005; 97116; 97161; 97165; 97530; 97535; J0456; J0696; J1030; J1815; J7050; J7626; Q9967; 94640; 96374; 99283; 99284; J2920; J2930; S1016

== ENCOUNTER 2019-07-22 08:47 | Outpatient (CLI) | payer MEDICARE ==
[2019-07-22 09:04] LABS: BASOPHILS % 0.7 % (0.0-1.5); NEUTROPHILS # 6.8 # k/uL (1.4-7.7)
[2019-07-22 09:29] LABS: eGFR (Non-African) > 60
--- NOTE | 2019-07-22 09:30 | Diagnostic Imaging Report ---
NAUN BELTRAN [facility] [address] [facility] [address] [place] [address]. [id number] Report Submission Date: Jul 22, 2019 9:12:58 AM CDT Patient Study Name: ERNST VALDOVINOS Date: Jul 22, 2019 8:53:24 AM CDT Modality Type: DX Gender: M Description: CHEST 2VIEW : 39 Institution: [facility] Physician: NAUN BELTRAN Exam: Chest two views. History: Congestion. The examination is compared to a study dated July 13, 2019. Lung christopher are very well aerated. Diminished perihilar infiltrates and congestion are noted. Heart and mediastinal contour are stable. Degenerate changes in the thoracic spine are noted. Impression: No yeny consolidation or effusion. Electronically signed on Jul 22, 2019 9:12:58 AM CDT by: Juan José ZUNIGA
== END 2019-07-22 08:50 ==
LOC: LAB 08:47
PROVIDERS: ATTEND Family Medicine
DX: R09.89 Other specified symptoms and signs involving the circulatory and respiratory systems (principal)
CPT/HCPCS: 36415; 71046; 80053; 83880; 85025

== ENCOUNTER 2019-09-08 07:59 | Outpatient (CLI) | payer MEDICARE ==
[2019-09-08 08:59] LABS: HDL 61 mg/dL (>40); eGFR (Non-African) > 60
[2019-09-08 09:00] LABS: A1C 6.4 % (<5.7)
== END 2019-09-08 08:05 ==
LOC: LAB 07:59
PROVIDERS: ATTEND Family Medicine
DX: E11.9 Type 2 diabetes mellitus without complications (principal); I10 Essential (primary) hypertension
CPT/HCPCS: 36415; 80053; 80061; 83036